=== PATIENT | female | born 1970 | race Caucasian/White ===

== ENCOUNTER → 2018-04-15 | Outpatient (CLI) | payer OTHER | LOC: BMCIMAGING 14:08 | PROVIDERS: ATTEND Physician Assistant | DX: M77.31 Calcaneal spur, right foot (principal); M77.32 Calcaneal spur, left foot; M20.11 Hallux valgus (acquired), right foot ==

== ENCOUNTER 2018-05-13 05:11 | Emergency (ER) | payer OTHER | END 2018-05-13 05:56 | disposition home or self-care (01) ==